=== PATIENT | female | born 1975 | race African-American/Black ===

== ENCOUNTER 2018-02-14 10:37 | Outpatient (CLI) | payer BC ==
[~2018-02-14 10:37] MED LIST: ALLEGRA ALRG180 M1 PO; AMOX500C85 PO; MEDROL DOSEPAK4 MG OR
== END 2018-02-14 19:23 | disposition home or self-care (01) ==
LOC: MAMMO 10:37
DX: Z12.31 Encounter for screening mammogram for malignant neoplasm of breast (principal)

== ENCOUNTER 2018-09-24 14:43 | Outpatient (CLI) | payer OTHER | END 2018-09-25 05:55 | disposition home or self-care (01) | LOC: LABW 14:43 | DX: R31.9 Hematuria, unspecified (principal) | CPT/HCPCS: 81000; 87086; 87088 ==

== ENCOUNTER → 2019-02-25 06:55 | Outpatient (CLI) | payer OTHER | END | disposition home or self-care (01) | LOC: AMB 06:55 | DX: Z04.1 Encounter for examination and observation following transport accident (principal) ==

== ENCOUNTER 2019-08-24 12:32 | Outpatient (CLI) | payer OTHER | END 2019-08-24 23:14 | disposition home or self-care (01) | LOC: LAB 12:32 | DX: R30.0 Dysuria (principal) | CPT/HCPCS: 87077; 87086; 87088; 87186 ==

== ENCOUNTER 2020-03-03 09:27 | Outpatient (CLI) | payer OTHER | END 2020-03-03 22:05 | disposition home or self-care (01) | LOC: LAB 09:27 | PROVIDERS: ATTEND Internal Medicine | DX: J45.21 Mild intermittent asthma with (acute) exacerbation (principal); Z11.59 Encounter for screening for other viral diseases | CPT/HCPCS: 87635; G2023; U0003 ==